=== PATIENT | female | born 1955 | race Caucasian/White ===

== ENCOUNTER 2016-11-10 11:30 | Emergency (ER) | payer BC ==
[~2016-11-10] VITALS: Ht 175.3 cm; Wt 113.4 kg
--- NOTE | ~2016-11-10 | CR210 ---
[facility] A Service of [facility] & [facility] RADIOLOGY TEXT RESULTS PATIENT: NATHAN BARRERA LOCATION: [facility] : 59 UNIT #: [id number] AGE: [address]: Oxana Katz MD SEX: F ORDER DR: [id number] [facility] [address] [place], [place] [address] [id number] E MR#: [id number] Acc #: [id number] NAME: NATHAN BARRERA : 1955 SEX: F STUDY DATE/TIME: 11/10/2016 14:49 UNIT: [facility] ROOM: STUDY DESCRIPTION: CR Ribs Uni 2 View W PA Ch Lt Attending Physician: Oxana Katz M.D. Ordering Physician: Oxana Katz M.D. Primary Care Physician: Airam Hodgson M.D. MEDICAL IMAGING REPORT This report is preliminary unless electronic signature is present EXAM Frontal chest and left rib series, 11/10/2016 INDICATIONS 61-year-old female with left-sided rib pain and upper back pain began today. No known injury. TECHNIQUE Frontal chest and 3 views left ribs compared with 09/22/2016. FINDINGS Cardiac silhouette unremarkable. Vascularity normal. Lungs clear, no effusion or pneumothorax. No displaced rib fracture. IMPRESSION 1. Negative frontal chest and left rib series. Dictated by... Rambo Alvares M.D. THIS IS AN ELECTRONICALLY VERIFIED REPORT Rambo Alvares M.D. at 11/10/2016 11:33 PM ANANDA/christen TD: 11/10/2016 21:10 JOB #: [id number] MEDICAL IMAGING REPORT Page 1 of 1 COPY
--- NOTE | ~2016-11-10 | CR243 ---
[facility] A Service of [facility] & [facility] RADIOLOGY TEXT RESULTS PATIENT: NATHAN BARRERA LOCATION: [facility] : 59 UNIT #: [id number] AGE: [address]: Oxana Katz MD SEX: F ORDER DR: [id number] [facility] [address] [place], [place] [address] [id number] MR#: [id number] Acc #: [id number] NAME: NATHAN BARRERA : 1955 SEX: F STUDY DATE/TIME: 11/10/2016 14:49 UNIT: [facility] ROOM: STUDY DESCRIPTION: CR Thoracic Spine 3 Views Attending Physician: Oxana Katz M.D. Ordering Physician: Oxana Katz M.D. Primary Care Physician: Airam Hodgson M.D. MEDICAL IMAGING REPORT This report is preliminary unless electronic signature is present EXAM Thoracic series, 11/10/2016. INDICATIONS 61-year-old female with pain in the upper back and left sided ribs today with no known injury. TECHNIQUE Frontal lateral swimmers views performed. COMPARISON Correlation is made with MRI 05/25/2016. FINDINGS Vertebral body heights and alignment are preserved. Mild degenerative disc disease in the [id number] thoracic levels. Cervicothoracic junction suboptimally visualized but grossly intact. IMPRESSION 1. Mild degenerative change otherwise negative. Dictated by... Rambo Alvares M.D. THIS IS AN ELECTRONICALLY VERIFIED REPORT Rambo Alvares M.D. at 11/10/2016 11:33 PM [place] TD: 11/10/2016 21:18 JOB #: [id number] MEDICAL IMAGING REPORT Page 1 of 1 COPY
--- NOTE | ~2016-11-10 | EKG ---
PATIENT: NATHAN BARRERA UNIT #: [id number] Ventricular Rate: 87 BPM Atrial Rate: 87 BPM P-R Interval: 168 ms QRS Duration: 90 ms Q-T Interval: 378 ms QTC Calculation(Bezet): 454 ms P [place]: 41 degrees Calculated R [place]: -20 degrees Calculated T [place]: 47 degrees Diagnosis Line: Normal sinus rhythm Diagnosis Line: Pulmonary disease pattern Diagnosis Line: Borderline ECG Diagnosis Line: When compared with ECG of 07-MAR-2012 12:08, Diagnosis Line: No significant change was found Diagnosis Line: Confirmed by JONATHAN SANTANA MD ([id number]) on 11/10/2016 Diagnosis Line: 7:26:58 PM INTERPRETING MD: MAX ARELLANO
[~2016-11-10 11:30] MED LIST: ACETAMINOPHEN PO; BENTYL20 MG PO; CIPRO PO; CLARITIN10 MG PO; DICYCLOMINE HCL10 MG PO; FLEXERIL PO; IBUPROFEN PO; MULTI-VITAMIN1 EAC1 PO; NEXIUM PO; NORVASC10 MG PO; PREVACID PO; ULTRAM PO; VITAMIN D32000 UNIT PO; WELLBUTRIN PO; WELLBUTRIN SR150 MG PO; ZOLOFT PO; ZOLOFT100 MG PO
[2016-11-10 13:52] LABS: BASOPHIL# 0.1 X10e3 (0-0.3); BASOPHIL% 0.8 % (0-2.5); EOSINOPHIL# 0.4 X10e3 (0-0.7); EOSINOPHIL% 2.9 % (0.0-7.0); HEMATOCRIT 41.6 % (35.0-45.0); HEMOGLOBIN 13.7 gm/dL (12.0-16.0); LYMPHOCYTE# 4.5 X10e3 (1.0-3.5); LYMPHOCYTE% 32.6 % (17.0-45.0); MEAN CELL VOLUME 89.7 FL (83-96); MEAN CORPUSCULAR HEMOGLOBIN 29.6 PG (28-34); MEAN PLATELET VOLUME 8.7 FL (6.5-11.5); MONOCYTE# 0.6 X10e3 (0-1.0); MONOCYTE% 4.4 % (3.0-12.0); NEUTROPHIL# 8.2 X10e3 (1.5-7.1); NEUTROPHIL% 59.3 % (40-75); PLATELET COUNT 267 X10e3 (140-420); RED BLOOD COUNT 4.64 X10e (3.90-5.30); RED CELL DISTRIBUTION WIDTH 14.9 % (11.0-15.5); WHITE BLOOD COUNT 13.7 X10e3 (4.0-10.5)
[2016-11-10 13:55] LABS: POC - TROPONIN <0.05 ng/mL (<=0.05)
[2016-11-10 13:56] LABS: DIFF IND NO
[2016-11-10 14:09] LABS: ALBUMIN SERUM 4.3 g/dL (3.5-5.0); BILIRUBIN, DIRECT 0.1 mg/dL (0.0-0.2); BILIRUBIN,INDIRECT 0.4 mg/dL (0.0-0.9); BILIRUBIN,TOTAL 0.5 mg/dL (0.2-2.0); BUN/CREATININE RATIO 12.3; CALCIUM SERUM 9.7 mg/dL (8.4-10.2); CREATININE SERUM 1.3 mg/dL (0.6-1.4); GLOM FILT RATE Estimated 44.9 mL/min (>60); PROTEIN TOTAL SERUM 8.6 g/dL (6.0-8.3)
[2016-11-10 15:43] LABS: POC - CKMB 2.5 ng/mL (0.0-7.9); POC - TROPONIN <0.05 ng/mL (<=0.05)
== END 2016-11-10 16:46 | disposition home or self-care (01) ==
LOC: CED 11:30
PROVIDERS: Emergency Medicine
DX: R07.89 Other chest pain (principal); K21.9 Gastro-esophageal reflux disease without esophagitis; F17.200 Nicotine dependence, unspecified, uncomplicated; Z88.0 Allergy status to penicillin
CPT/HCPCS: 36415; 71101; 72072; 80048; 80076; 82553; 84484; 85025; 85379; 93005; 99285; J1885